=== PATIENT | male | born 1945 | race Caucasian/White ===

== ENCOUNTER → 2017-04-16 | Outpatient (CLI) | payer OTHER ==
[~2017-04-16] MED LIST: ASPIRIN E.C.81 M1 PO; THERAGRAN1 TABLET PO; Vicodin,Lortab 5/500 PO
== END | disposition home or self-care (01) ==
LOC: CT 16:57
DX: R41.0 Disorientation, unspecified (principal); R42 Dizziness and giddiness; I49.9 Cardiac arrhythmia, unspecified
CPT/HCPCS: 70450